=== PATIENT | female | born 1990 | race Caucasian/White ===

== ENCOUNTER 2018-05-31 19:31 | Emergency (ER) | payer SELFPAY ==
--- NOTE | 2018-05-31 20:41 | EDPHYS ---
Physician Documentation [facility] Name: Kimmie Young Age: 27 yrs Sex: Female : 1990 Arrival Date: 05/31/2018 Time: 19:36 Bed DIS1 Private MD: ED Physician Delvis Collier HPI: 05/31 20:35 This 27 yrs old Female presents to ER via Ambulatory with complaints of kb Fever, Congestion. 20:35 The patient or guardian reports cough, that is intermittent, described as mild, with no kb sputum, flu symptoms, low-grade fever, myalgias. Onset: The symptoms/episode began/occurred 3 day(s) ago. Severity of symptoms: At their worst the symptoms were mild, moderate, in the emergency department the symptoms are unchanged. Modifying factors: The symptoms are alleviated by nothing, the symptoms are aggravated by nothing. Associated signs and symptoms: Pertinent positives: fever, rhinorrhea, sore throat, Pertinent negatives: chest pain, diarrhea, ear ache, nausea, vomiting. The patient has not experienced similar symptoms in the past. The patient has not recently seen a physician. 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 - Social history:: Smoking status: Patient/guardian denies using tobacco. - Ebola Screening: : Patient negative for fever greater than or equal to 101.5 degrees Fahrenheit, and additional compatible Ebola Virus Disease symptoms. ROS: 20:34 Cardiovascular: Negative for chest pain, palpitations, and edema, Abdomen/GI: Negative kb for abdominal pain, nausea, vomiting, diarrhea, and constipation, MS/Extremity: Negative for injury and deformity, Skin: Negative for injury, rash, and discoloration, Neuro: Negative for headache, weakness, numbness, tingling, and seizure. 20:34 Constitutional: Positive for body aches, chills, fatigue, fever, malaise, Negative for poor PO intake, weight loss. 20:34 ENT: Positive for rhinorrhea, sinus congestion, sore throat. 20:34 Respiratory: Positive for cough, Negative for dyspnea on exertion, hemoptysis, orthopnea, pleurisy, shortness of breath, sputum production, wheezing. Exam: 20:35 Constitutional: This is a well developed, well nourished patient who is awake, alert, kb and in no acute distress. Head/Face: Normocephalic, atraumatic. ENT: Nares patent. No nasal discharge, no septal abnormalities noted. Tympanic membranes are normal and external auditory canals are clear. Oropharynx with no redness, swelling, or masses, exudates, or evidence of obstruction, uvula midline. Mucous membranes moist. Neck: Trachea midline, no thyromegaly or masses palpated, and no cervical lymphadenopathy. Supple, full range of motion without nuchal rigidity, or vertebral point tenderness. No Meningismus. Chest/axilla: Normal chest wall appearance and motion. Nontender with no deformity. No lesions are appreciated. Cardiovascular: Regular rate and rhythm with a normal S1 and S2. No gallops, murmurs, or rubs. Normal PMI, no JVD. No pulse deficits. Respiratory: Lungs have equal breath sounds bilaterally, clear to auscultation and percussion. No rales, rhonchi or wheezes noted. No increased work of breathing, no retractions or nasal flaring. Abdomen/GI: Soft, non-tender, with normal bowel sounds. No distension or tympany. No guarding or rebound. No evidence of tenderness throughout. Skin: Warm, dry with normal turgor. Normal color with no rashes, no lesions, and no evidence of cellulitis. MS/ Extremity: Pulses equal, no cyanosis. Neurovascular intact. Full, normal range of motion. Neuro: Awake and alert, GCS 15, oriented to person, place, time, and situation. Cranial nerves II-XII grossly intact. Motor strength 5/5 in all extremities. Sensory grossly intact. Cerebellar exam normal. Normal gait. Vital Signs: 19:53 BP 118 / 64; Pulse 71; Resp 16 S; Temp 98.1(O); Pulse Ox 99% on R/A; Weight 86.18 kg jd3 (R); Height 5 ft. 5 in. (165.10 cm) (R); Pain 4/10; 20:54 BP 123 / 68; Pulse 73; Resp 18; Pulse Ox 99% on R/A; ca1 19:53 Body Mass Index 31.62 (86.18 kg, 165.10 cm) jd3 MDM: 19:40 Patient medically screened. kb 20:35 Data reviewed: vital signs, nurses notes. Data interpreted: Pulse oximetry: on room air kb is 99 %. Interpretation: normal. 20:36 Counseling: I had a detailed discussion with the patient and/or guardian regarding: the kb historical points, exam findings, and any diagnostic results supporting the discharge/admit diagnosis, lab results, the need for outpatient follow up, a family practitioner, to return to the emergency department if symptoms worsen or persist or if there are any questions or concerns that arise at home. 05/31 19:53 Order name: Flu; Complete Time: 20:33 kb 05/31 19:53 Order name: Strep; Complete Time: 20:32 kb 05/31 20:31 Order name: Throat Culture EDMS Administered Medications: No medications were administered Disposition: 06/01 07:45 Co-signature as Attending Physician, Delvis Collier MD I agree with the assessment and [facility] plan of care. Disposition: 05/31/18 20:40 Discharged to Home. Impression: Acute upper respiratory infection, unspecified. - Condition is Stable. - Discharge Instructions: Upper Respiratory Infection, Adult, [id number], Viral Respiratory Infection, Mjvv-[id number]. - Medication Reconciliation Form, Thank You Letter, Antibiotic Education, Prescription Opioid Use form. - Follow up: Emergency Department; When: As needed; Reason: Worsening of condition. Follow up: Private Physician; When: 2 - 3 days; Reason: Recheck today's complaints, Continuance of care, Re-evaluation by your physician. Signatures: Dispatcher [employer] EDMS Rebecca Pinzon, SPECIALTY SALES REPRESENTATIVE-C SPECIALTY SALES REPRESENTATIVE-Delvis Oconnor MD MD cha Davies, Jonathon, RN RN jd3 Shaunna Arceo RN RN ca1 Corrections: (The following items were deleted from the chart) 05/31 21:22 20:40 05/31/2018 20:40 Discharged to Home. Impression: Acute upper respiratory ca1 infection, unspecified. Condition is Stable. Discharge Instructions: Upper Respiratory Infection, Adult, [id number], Viral Respiratory Infection, Gsuw-[id number]. Forms are Medication Reconciliation Form, Thank You Letter, Antibiotic Education, Prescription Opioid Use. Follow up: Emergency Department; When: As needed; Reason: Worsening of condition. Follow up: Private Physician; When: 2 - 3 days; Reason: Recheck today's complaints, Continuance of care, Re-evaluation by your physician. kb
--- NOTE | 2018-05-31 20:41 | ER ---
Nurse's Notes [facility] Name: Kimmie Young Age: 27 yrs Sex: Female : 1990 Arrival Date: 05/31/2018 Time: 19:36 Bed DIS1 Private MD: Diagnosis: Acute upper respiratory infection, unspecified Presentation: 05/31 19:51 Presenting complaint: Patient states: "I think I might have the flu or pneumonia or jd3 something. my upper back hurts when I breath in.". Transition of care: patient was not received from another setting of care. Onset of symptoms was May 30, 2018. Risk Assessment: Do you want to hurt yourself or someone else? Patient reports no desire to harm self or others. Initial Sepsis Screen: Does the patient meet any 2 criteria? No. Patient's initial sepsis screen is negative. Does the patient have a suspected source of infection? No. Patient's initial sepsis screen is negative. Care prior to arrival: None. 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 - Social history:: Smoking status: Patient/guardian denies using tobacco. - Ebola Screening: : Patient negative for fever greater than or equal to 101.5 degrees Fahrenheit, and additional compatible Ebola Virus Disease symptoms. Screenin:00 Abuse screen: Denies threats or abuse. Denies injuries from another. ca1 20:00 Nutritional screening: No deficits noted. Tuberculosis screening: No symptoms or risk ca1 factors identified. Fall Risk None identified. Assessment: 20:00 General: Appears in no apparent distress. Behavior is calm, cooperative, appropriate ca1 for age. Pain: Complains of pain in chest, upper back, throat Pain currently is 4 out of 10 on a pain scale. Neuro: Level of Consciousness is awake, alert, obeys commands, Oriented to person, place, time, situation, Appropriate for age. Cardiovascular: Heart tones S1 S2 Capillary refill < 3 seconds Patient's skin is warm and dry. Respiratory: Reports cough that is non-productive, pain with cough since last night. sore throat, runny and stuffy nose for several days. Airway is patent Trachea midline Respiratory effort is even, unlabored, Respiratory pattern is regular, symmetrical, Breath sounds are clear bilaterally. GI: Abdomen is flat, non-distended, Bowel sounds present X 4 quads. Abd is soft and non tender X 4 quads. : No signs and/or symptoms were reported regarding the genitourinary system. 20:54 EENT: Throat is pink. Derm: Skin is intact, is healthy with good turgor, Skin is pink, ca1 warm \\T\\ dry. Musculoskeletal: Circulation, motion, and sensation intact. Capillary refill < 3 seconds, Range of motion: intact in all extremities. 20:54 Reassessment: Patient appears in no apparent distress at this time. Patient and/or ca1 family updated on plan of care and expected duration. Pain level reassessed. Patient is alert, oriented x 3, equal unlabored respirations, skin warm/dry/pink. Vital Signs: 19:53 BP 118 / 64; Pulse 71; Resp 16 S; Temp 98.1(O); Pulse Ox 99% on R/A; Weight 86.18 kg jd3 (R); Height 5 ft. 5 in. (165.10 cm) (R); Pain 4/10; 20:54 BP 123 / 68; Pulse 73; Resp 18; Pulse Ox 99% on R/A; ca1 19:53 Body Mass Index 31.62 (86.18 kg, 165.10 cm) jd3 ED Course: 19:36 Patient arrived in ED. es 19:39 Rebecca Pinzon FNP-C is PHCP. kb 19:39 Delvis Collier MD is Attending Physician. kb 19:44 Shaunna Arceo, THA is Primary Nurse. ca1 19:53 Triage completed. jd3 19:54 Arm band placed on. jd3 20:00 Patient has correct armband on for positive identification. Bed in low position. Call ca1 light in reach. Side rails up X 1. Pulse ox on. NIBP on. 21:02 No provider procedures requiring assistance completed. ca1 21:02 Patient did not have IV access during this emergency room visit. ca1 Administered Medications: No medications were administered Outcome: 20:40 Discharge ordered by . og 21:02 Discharged to home ambulatory, with family. ca1 21:02 Condition: stable 21:02 Discharge instructions given to patient, Instructed on discharge instructions, follow up and referral plans. Demonstrated understanding of instructions, follow-up care. 21:22 Patient left the ED. ca1 Signatures: Rebecca Pinzon, TRAVEL RN OR-C TRAVEL RN OR-Ckb Bisi Rojas Jonathon, RN RN jd3 Shaunna Arceo RN RN ca1 Corrections: (The following items were deleted from the chart) 53 20:21 General: Appears in no apparent distress. Behavior is calm, cooperative, ca1 appropriate for age, ca1 :53 20:21 Pain: Complains of pain in chest, upper back, throat Pain currently is 4 out of ca1 10 on a pain scale. ca1 :53 20:21 Neuro: Level of Consciousness is awake, alert, obeys commands, Oriented to ca1 person, place, time, situation, Appropriate for age ca1 :53 20:21 Cardiovascular: Heart tones S1 S2 Capillary refill < 3 seconds Patient's skin is ca1 warm and dry. ca1 :53 20:21 Respiratory: Reports cough that is non-productive, pain with cough since last ca1 night. sore throat, runny and stuffy nose for several days. Airway is patent Trachea midline Respiratory effort is even, unlabored, Respiratory pattern is regular, symmetrical, Breath sounds are clear bilaterally. ca1 :53 20:21 GI: Abdomen is flat, non-distended, Bowel sounds present X 4 quads. Abd is soft ca1 and non tender X 4 quads. ca1 :53 20:21 : No signs and/or symptoms were reported regarding the genitourinary system. ca1ca1 53 20:21 EENT: Throat is pink ca1 ca1 :18 20:21 EENT: Throat is pink ca1 ca1 21:18 21:17 Abuse screen: Denies threats or abuse. ca1 ca1 : 20:21 Derm: Skin is intact, is healthy with good turgor, Skin is pink, warm \\T\\ dry. ca1 ca1 : 20:21 Musculoskeletal: Circulation, motion, and sensation intact. Capillary refill < 3 ca1 seconds, Range of motion: intact in all extremities, ca1 : 20:21 EENT: Throat is pink ca1 ca1
== END 2018-05-31 21:22 | disposition home or self-care (01) ==
LOC: ER 19:31
DX: J06.9 Acute upper respiratory infection, unspecified (principal)
CPT/HCPCS: 87070; 87081; 87804; 99283